=== PATIENT | male | born 1965 | race Caucasian/White ===

== ENCOUNTER → 2016-09-23 | Outpatient (CLI) | payer OTHER ==
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
== END | disposition home or self-care (01) ==
LOC: CRAD 11:50
DX: M79.642 Pain in left hand (principal); M25.842 Other specified joint disorders, left hand
CPT/HCPCS: 73130